=== PATIENT | male | born 1950 | race Caucasian/White ===

== ENCOUNTER 2018-11-21 08:46 | Day surgery (SDC) | payer OTHER, SELFPAY ==
[2018-11-21 09:21] VITALS: BP 139/82; PULSE 74; RESP 16; TEMP 36.3; O2SAT 100; BMI 25.8
[2018-11-21] MEDS: SODIUM CHLORIDE 0.9% 1,000 ML 200 ML IV (09:28)
--- NOTE | 2018-11-21 09:50 | PM.HP.1 ---
History of Present Illness Date Patient Seen: 11/21/18 Time Patient Seen: 09:51 Chief complaint: colonoscopy [id number] Narrative: 68-year-old male with extensive history of vasculopathy, aortic dissection, and aneurysms status post endovascular repairs who presents now for colorectal screening. His last examination was at least 10 years ago. He reports the study was normal at that time. However, his father was diagnosed with colon cancer at the age of 54 approximately. On further history today the patient denies any recent change in bowel habits. No nausea, vomiting, loss of appetite, unexplained weight loss, abdominal pain, change in bowel habits, diarrhea, constipation, melena, hematochezia, or bright red blood per rectum. Patient History Medical History Coronary artery disease (Acute) Family history of colon cancer in father (Acute) History of tobacco use (Acute) Hyperlipidemia (Acute) Hypertension (Acute) Surgical History History of colonoscopy (Acute) History of coronary artery stent placement (Acute) Anesthesia (Resolved) Dissection of aorta (Resolved ~2008) Popliteal aneurysm (Resolved ~2008) Popliteal aneurysm (Resolved ~2014) Surgical procedure planned (Resolved ~2012) Family History Father Heart disease Sister Dementia Social History household members: spouse Family & Social History Family History Father Heart disease Cancer Sister Dementia Social History: household members spouse Meds Home Medications Medication Instructions Recorded Confirmed Type atorvastatin 20 mg tablet 20 mg PO DAILY #90 tab 04/29/18 Rx losartan 50 mg tablet 50 mg PO DAILY #90 tab 04/29/18 Rx Allergies Allergy/AdvReac Type Severity Reaction Status Date / Time No Known Drug Allergies Allergy Unverified 04/29/18 10:34 Review of Systems Review of Systems All systems reviewed & are unremarkable except as noted in HPI and below Exam Vital Signs (past 8 hours): - 11/21/18 09:21 Temperature 97.3 F L Pulse Rate 74 Respiratory Rate 16 Blood Pressure 139/82 Pulse Oximetry 100 Oxygen Delivery Method Room Air Narrative Exam Narrative: Well-nourished well-developed male in no acute distress. Alert oriented x3. His is at the bedside for my entire visit. Sclera nonicteric Regular rate and rhythm No wheezes Extremities show no clubbing, cyanosis, or edema Abdomen soft, nondistended, nontender Objective Labs Labs: No recent laboratory or radiographic studies for review Assessment & Plan Assessment & Plan narrative: 68-year-old male with family history of colon cancer in his father and need for colorectal screening since it has been 10 years from his last examination. Colonoscopy is once again recommended. Technical details of the procedure were discussed. Risks, benefits, alternatives were explained. Risks including but not limited to sedation, aspiration, bleeding, pain, missed lesion, incomplete examination, need for further radiographic studies, colonic perforation, need for major abdominal surgery, and all attendant risks of major surgery were discussed at length. All questions were answered to his satisfaction, and he voiced understanding. Consent was placed on the chart. We will proceed as above.
--- NOTE | 2018-11-21 09:55 | PM.PREOP ---
Pre-operative Note Interval Note History & Physical reviewed/Exam performed by Physician: Yes Changes to H&P: No H&P completed within 30 days and has changed as indicated here:: Patient seen and examined in preoperative area. History and physical examination placed on the chart. Obviously, there have been no changes in the last 15 min. We will proceed with colonoscopy today as planned. ASA Class (for procedural sedation): II
--- NOTE | 2018-11-21 10:22 | PM.OP.ENDO ---
Operative Date/Time/Diagnoses Date of procedure: 11/21/18 Time of procedure: 10:22 Pre-op diagnosis: Colorectal screening and family history of colon cancer Post-op diagnosis: other (Colon polyps and diverticulosis) Procedure & Clinicians Study performed: 1. Sedation per surgeon 2. Colonoscopy with cold forceps polypectomy Same procedure as scheduled: Yes Indications: 68-year-old male with family history of colon cancer in his father who presents for colorectal screening. His last examination was 10 years ago as well. Colonoscopy is once again recommended. Surgeon: Dung Huffman Procedure Notes SCOAP/Timeout: Yes Procedure in detail: After obtaining informed consent, the patient was brought to the GI suite and placed in the left lateral decubitus position on the examination table. After placement of appropriate monitors, the patient was given incremental doses of Versed and Fentanyl until an appropriate level of sedation was achieved. A time out was held per SCOAP protocol. A digital rectal examination was performed and did not reveal any masses or obstructing lesions. The colonoscope was gently passed into the patient's anus and the entire colon navigated to the level of the cecum with minimal difficulty. Terminal ileum was intubated and noted to be normal. Once in the cecum, the scope was withdrawn being sure to go before and beyond all mucosal folds and prominences and get an excellent examination. The findings are noted above. At the level of the rectal vault, the scope was retroflexed and the internal anal canal was examined. The scope was straightened and air aspirated from the colon. The instrument was removed from the patient's body and the procedure was concluded. The patient was allowed to awaken from sedation without difficulty and taken to the post-anesthesia care unit in good condition. Scope withdrawal time: 12:48 min Sedation minutes: 21 Findings: diverticulosis, polyp and other findings (External hemorrhoids but not inflamed or thrombosed) Specimen(s): other (1. Hepatic flexure polyp at 70 cm 2. Left colon polyp at 40 cm) Complications: none Recommendations: Colonscopy in 5 years, High fiber diet and Will call with biopsy results Plan for aftercare: 1. Discharge home Follow up: as needed Disposition: PACU
[2018-11-21] MEDS: fentaNYL 250 MCG/5 ML INJ IV (10:23)
[2018-11-21 10:24] VITALS: BP 100/69; PULSE 64; RESP 9; TEMP 36.3; O2SAT 95
[2018-11-21] MEDS: MIDAZOLAM 5 MG/5 ML VIAL IV (10:24)
[2018-11-21 10:29] VITALS: BP 100/65; PULSE 67; RESP 9; O2SAT 93
[2018-11-21 10:35] VITALS: BP 101/70; PULSE 64; RESP 9; O2SAT 92
[2018-11-21 10:37] VITALS: O2SAT 100
[2018-11-21 11:00] VITALS: BP 124/76; PULSE 73; RESP 15; TEMP 36.8; O2SAT 96
--- NOTE | 2018-11-21 23:43 | PATH_ITS ---
[facility] [id number] [id number] Control ID: [id number] [facility] PATHOLOGY ONLY [address] [place] [id number] JAMES SPENCER [address] [place] [address] [id number] Patient Details : 1950 Age(y/m/d): Gender: M SSN: [id number] Specimen Details Date collected: 11/21/2018 2343 Local Date received: 11/21/2018 Date entered: 11/21/2018 Date reported: 11/25/2018 2006 ET Physician Details Ordering: Suni Clay Referring: ID: [email or web address] Additional Information: Clinical Info: [id number] Pathology Report Tests Ordered: Clinician Provided ICD Code(s) & Clinical History: Material Submitted: () PART A: HEPATIC FLEXURE POLYP AT 70CM PART B: LEFT COLON POLYP AT 40CM Diagnosis: (02) Polyp, Hepatic Flexure At 70 CM: Tubular adenoma. Left Colon Polyp At 40 CM: Tubular adenoma. BFI/11/24/2018 Pathologist Provided ICD Code(s): (02) D12.6 CPT Codes: (02) 456652, 336935 Gross Description: (01) Part A: HEPATIC FLEXURE POLYP AT 70CM: Received in formalin is 1 fragment(s) of mccabe, soft tissue measuring 0.4 x 0.4 x 0.3 cm submitted entirely in 1 cassette(s) Part B: LEFT COLON POLYP AT 40CM: Received in formalin are multiple fragment(s) of mccabe, soft tissue measuring 0.5 x 0.4 x 0.2 cm in aggregate submitted entirely in 1 cassette(s) /CKI Comments: (02) ADDENDUM: ADDENDUM REASON: This addendum is issued to confirm the diagnoses previously rendered by Dr. Daugherty, who is not credentialed at [facility]. The above diagnosis is unchanged. ADDENDUM COMMENT: I agree with Dr. Daugherty that both the hepatic flexure polyp at 70 cm and the left colon polyp at 40 cm are tubular adenomas. There is no evidence of high-grade dysplasia or malignancy. [facility]/11/25/2018 Addendum Electronically Signed by Storm Patiño MD, PhD, Pathologist ACC: [id number] PID: [id number] Electronically signed by (02) Mark Daugherty MD, Pathologist NPI- [id number]
== END 2018-11-21 11:20 | disposition home or self-care (01) ==
PROVIDERS: Surgery; PCP Family Medicine; Visit Provider Specialist
PROC: 0DJD8ZZ Inspection of Lower Intestinal Tract, Via Natural or Artificial Opening Endoscopic (ICD-10-PCS; CPT 45378; principal; 2018-11-21 10:45)
DX: Z12.11 Encounter for screening for malignant neoplasm of colon (principal); Z80.0 Family history of malignant neoplasm of digestive organs; K57.30 Diverticulosis of large intestine without perforation or abscess without bleeding; K64.4 Residual hemorrhoidal skin tags; I25.10 Atherosclerotic heart disease of native coronary artery without angina pectoris; Z87.891 Personal history of nicotine dependence; E78.5 Hyperlipidemia, unspecified; I10 Essential (primary) hypertension; D12.4 Benign neoplasm of descending colon
CPT/HCPCS: 45380; 99152; J2250; J3010

== ENCOUNTER 2019-10-07 18:30 | Emergency (ER) | payer OTHER, SELFPAY ==
[2019-10-07 18:40] VITALS: BP 160/98; PULSE 83; RESP 16; TEMP 36.6; O2SAT 97; BMI 25.8
--- NOTE | 2019-10-07 18:47 | ED_ITS ---
HPI - Chest Pain General Chief Complaint: Chest Pain Stated Complaint: left abdomen pain and chest pain Time Seen by Provider: 10/07/19 18:42 Source: patient Mode of arrival: Ambulatory Limitations: no limitations History of Present Illness HPI narrative: 69-year-old male here for evaluation of left upper abdomen ab dominal pain and also back pain. States that the symptoms have been going on for the past couple days but they have not been constant. Not worse with palpation. Has not had any diarrhea urinary symptoms. No blood in his urine. No blood in the stool. No prior abdominal surgeries. He does state that the symptoms do get a little bit worse with position and movement. No problems breathing. He does have a history of an abdominal aortic aneurysm/dissection and also a thoracic aortic pathology as well. Related Data Previous Rx's Medication Instructions Recorded atorvastatin 20 mg tablet See Rx Instructions .ROUTE 09/28/19 .COMPLEX #90 tablet losartan 50 mg tablet 50 mg PO DAILY #30 tab 10/05/19 Allergies Allergy/AdvReac Type Severity Reaction Status Date / Time No Known Drug Allergies Allergy Unverified 04/29/18 10:34 Review of Systems Constitutional Constitutional: Denies fever(s) and Denies headache(s) ENT Ears, Nose, Mouth, and Throat: Denies vertigo, Denies headache(s) and Denies disequilibrium Cardiovascular Cardiovascular: Denies chest pain, Denies diaphoresis, Denies palpitations and Denies dyspnea Respiratory Respiratory: Denies cough and Denies dyspnea Gastrointestinal Gastrointestinal: Reports abdominal pain, Denies melena, Denies hematochezia, Denies change in stool character, Denies constipation, Denies diarrhea, Denies nausea, Denies vomiting and Denies hematemesis Genitourinary Genitourinary: Denies hematuria, Denies genital lesions, Denies genital pain, Denies dysuria and Reports flank pain Musculoskeletal Musculoskeletal: Denies myalgias and Denies arthralgias Integumentary/Breasts Skin/Breast: Denies lesions and Denies rash Neurologic Neurologic: Denies behavioral changes, Denies vertigo, Denies headache(s) and Denies disequilibrium Psychiatric Psychiatric: Denies behavioral changes Endocrine Endocrine: Denies palpitations Hematologic/Lymphatic Hematologic/Lymphatic: Denies easy bleeding and Denies easy bruising Allergic/Immunologic Allergic/Immunologic: Denies urticaria Patient History Medical History Coronary artery disease (Acute) Family history of colon cancer in father (Acute) History of tobacco use (Acute) Hyperlipidemia (Acute) Hypertension (Acute) Social History household members: spouse Smoking Status: Never smoker Smoking Status: Never smoker alcohol intake frequency: 0-2 drinks per day Alcohol type: beer Substance Use Type: does not use Exam Initial Vital Signs Initial Vital Signs: Vital Signs Temperature 97.8 F 10/07/19 18:40 Pulse Rate 83 10/07/19 18:40 Respiratory Rate 16 10/07/19 18:40 Blood Pressure 160/98 H 10/07/19 18:40 Pulse Oximetry 97 10/07/19 18:40 Const General: cooperative, comfortable, well developed and well groomed Orientation: alert, awake and oriented x3 HENMT Head: normal to inspection and normocephalic Chest Chest: No crepitus and No tenderness Resp Effort & Inspection: normal respiratory effort Auscultation: clear to auscultation bilaterally Cardio Rate: regular rate Rhythm: regular rhythm Pulses: radial pulses present GI Inspection: non-distended Palpation: soft, No firm and No tender Back/Spine/Pelvis Back: No CVA tenderness Skin Lesions: no lesions Rashes: no rashes Neuro General: alert, awake and oriented x3 Cognition: normal cognition Speech: speech normal Motor: muscle tone normal throughout Sensory Exam: no sensory deficits noted Extrem General: normal to inspection and capillary refill normal Psych Appearance: grossly normal and well kempt Scores GCS [place] coma scale eye opening: Spontaneous Anne coma scale verbal response: Orientated Anne coma scale motor response: Obey commands [place] coma scale total score: 15 Course Orders Ordered: ED Orders 10/07/19 19:27 CT chest abd pel w con Stat 10/07/19 21:04 Troponin I Stat Discontinued Medications Sodium Chloride (Normal Saline 0.9%) 1,000 mls @ 1,000 mls/hr IV BOLUS ONE Stop: 10/07/19 20:20 Last Infusion: 10/07/19 22:43 Dose: 0 mls/hr Documented by: Admin: 10/07/19 21:34 Dose: 1,000 mls/hr Documented by: FRANKLIN Vital Signs Vital signs: Vital Signs - 8 hr 10/07/19 20:41 10/07/19 22:00 10/07/19 22:56 Pulse Rate 80 70 71 Respiratory Rate 19 15 16 Blood Pressure 148/91 H Blood Pressure [Left Arm] 146/92 H 148/85 H Pulse Oximetry 100 100 99 MDM - Chest Pain Medical Records Data Attestation: I reviewed the patient's medical records. Lab Data Attestation: I reviewed the patient's lab results. Result diagrams: 10/07/19 18:40 10/07/19 18:40 Labs: Lab Results 10/07/19 10/07/19 10/07/19 Range/Units 18:40 18:40 18:40 WBC 8.5 (4.5-11.0) X10^3/uL RBC 5.03 (4.5-5.9) X10^6/uL Hgb 15.9 (13.5-17.5) g/dL Hct 46.1 (41-53) % MCV 91.6 (80-100) fL MCH 31.6 (26-34) PG MCHC 34.4 (30-36) % RDW 13.4 (11.6-14.8) % Plt Count 159 (150-400) X10^3/uL Neut % (Auto) 75.5 H (50-75) % Lymph % (Auto) 12.0 L (25-40) % Sol[place] % (Auto) 9.1 (3-14) % Eos % (Auto) 2.8 (2-4) % Baso % (Auto) 0.6 (0-2) % Neut # (Auto) 6400 (1918-1513) /uL Lymph # (Auto) 1000 L (4526-8421) /uL Solano # (Auto) 800 (0-900) /uL Eos # (Auto) 200 (0-450) /uL Baso # (Auto) 0 (0-100) /uL PT 12.0 (10.1-12.7) SECONDS INR 1.0 (0.9-1.3) APTT 33 (26.4-36.2) SECONDS Sodium 141 (137-145) mmol/L Potassium 3.6 (3.4-5.1) mmol/L Chloride 102 (98-107) mmol/L Carbon Dioxide 29 (22-32) mmol/L BUN 22 H (9-20) mg/dL Creatinine 0.80 (0.66-1.25) mg/dL Estimated GFR > 60.0 (>60) mL/min BUN/Creatinine Ratio 27.5 H (6-22) Glucose 83 (80-110) mg/dL Calcium 9.3 (8.4-10.2) mg/dL Total Bilirubin 0.6 (0.2-1.3) mg/dL AST 31 (17-59) IU/L ALT 35 (<50) IU/L Alkaline Phosphatase 90 (38-126) U/L Troponin I < 0.012 (0.01-0.034) ng/mL B-Natriuretic Peptide < 100 (<100) Total Protein 7.5 (6.3-8.2) g/dL Albumin 4.4 (3.5-5.0) g/dL Globulin 3.1 (1.7-4.1) g/dL Albumin/Globulin Ratio 1.4 (1.0-2.8) Lipase 34 (23-300) U/L 10/07/19 Range/Units 21:04 WBC (4.5-11.0) X10^3/uL RBC (4.5-5.9) X10^6/uL Hgb (13.5-17.5) g/dL Hct (41-53) % MCV (80-100) fL MCH (26-34) PG MCHC (30-36) % RDW (11.6-14.8) % Plt Count (150-400) X10^3/uL Neut % (Auto) (50-75) % Lymph % (Auto) (25-40) % Sol[place] % (Auto) (3-14) % Eos % (Auto) (2-4) % Baso % (Auto) (0-2) % Neut # (Auto) (0426-5184) /uL Lymph # (Auto) (8348-7382) /uL Solano # (Auto) (0-900) /uL Eos # (Auto) (0-450) /uL Baso # (Auto) (0-100) /uL PT (10.1-12.7) SECONDS INR (0.9-1.3) APTT (26.4-36.2) SECONDS Sodium (137-145) mmol/L Potassium (3.4-5.1) mmol/L Chloride (98-107) mmol/L Carbon Dioxide (22-32) mmol/L BUN (9-20) mg/dL Creatinine (0.66-1.25) mg/dL Estimated GFR (>60) mL/min BUN/Creatinine Ratio (6-22) Glucose (80-110) mg/dL Calcium (8.4-10.2) mg/dL Total Bilirubin (0.2-1.3) mg/dL AST (17-59) IU/L ALT (<50) IU/L Alkaline Phosphatase (38-126) U/L Troponin I < 0.012 (0.01-0.034) ng/mL B-Natriuretic Peptide (<100) Total Protein (6.3-8.2) g/dL Albumin (3.5-5.0) g/dL Globulin (1.7-4.1) g/dL Albumin/Globulin Ratio (1.0-2.8) Lipase (23-300) U/L Imaging Data Chest x-ray: Radiologist's Impression: [address] [address] XRay Report Signed Patient: Guillermo GellerMR#: [id number] : 8Acct:[id number] Age/Sex: 69 / MDate of Service: 10/07/19 Loc: ED Accession Number: [id number] Procedure: XR chest 1V Ordering Provider: Hugo Case D.O. PROCEDURE: XR CHEST 1V INDICATIONS: Chest pain TECHNIQUE: One view of the chest was acquired. COMPARISON: None. FINDINGS: Surgical changes and devices: Descending thoracic aorta tandem stents. Lungs and pleura: Lungs are clear. No pleural effusions or pneumothorax. Mediastinum: Torturous descending thoracic aorta. Heart size is within normal limits. Bones and chest wall: No suspicious bony lesions. Prior right-sided rib fractures. Overlying soft tissues appear unremarkable. IMPRESSION: No acute cardiopulmonary abnormality. Descending thoracic aorta stent. Dictated by: Eusebio Paul M.D. on 10/07/2019 at 19:02 Approved by: Eusebio Paul M.D. on 10/07/2019 at 19:04 CT chest abdomen pelvis: Radiologist's Impression: [address] [address] [address] Scan Report Signed Patient: Guillermo GellerMR#: [id number] : 8Acct:[id number] Age/Sex: 69 / MDate of Service: 10/07/19 Loc: ED Accession Number: [id number] Procedure: CT chest abd pel w con Ordering Provider: Hugo Case D.O. 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 5 mm coronal and sagittal reformats were performed, with additional 7 mm MIP reformats through the lungs. For radiation dose reduction, the following was used: automated exposure control, adjustment of mA and/or kV according to patient size. COMPARISON: [facility], CR, XR CHEST 1V, 10/07/2019, 18:54. FINDINGS: Image quality: Excellent. CHEST: Lungs and pleura: Mild groundglass opacity in the right lung for example in the right lower lobe, (3/240). Left lower lobe pleural nodule measuring 6 mm, (5/23). No pleural effusions or pneumothorax. Central and peripheral airways appear patent and normal in caliber. Mediastinum: Heart size is normal. No pericardial effusion. No mediastinal or hilar adenopathy by size criteria. Descending thoracic aorta aneurysm measuring 5 cm j ust distal to the aortic isthmus, (4/41). There is a descending thoracic aorta stent which is patent. Esophagus is normal in caliber. No hiatal hernia. Chest wall: No axillary or supraclavicular adenopathy by size criteria. Thyroid gland is unremarkable. ABDOMEN: Solid organs: Liver is normal in size and enhancement. Small hypodense hepatic foci which have the appearance of benign cyst or hemangioma. Gallbladder demonstrates cholelithiasis. Biliary system is non dilated. Pancreas enhances normally. Spleen is normal in size and enhancement. No adrenal nodules. Kidneys demonstrate normal size and enhancement, without hydronephrosis. Simple inferior pole left renal cyst measur ing 5 cm. Peritoneum and bowel: Bowel loops demonstrate normal wall thickness and caliber. No free fluid or air. Increased stool in the colon. The appendix is not identified. Nodes and vessels: No retroperitoneal or mesenteric adenopathy by size criteria. Inferior to the thoracic aorta stent is a abdominal aortic dissection extending to the right common iliac artery. The upper abdominal aorta is aneurysmal measuring 4.6 cm, (2/72). There is calcification in at the dissection flap. Distal right common iliac artery aneurysm measuring approximately 3 cm, (2/106). The mesenteric arteries and renal arteries are patent. Miscellaneous: Tiny periumbilical fat-containing hernia. PELVIS: Genitourinary: Bladder wall thickness is normal. Prostatomegaly. Miscellaneous: Bilateral fat-containing inguinal hernias. No adenopathy. Bones: No suspicious bony lesions. No vertebral body compression fractures. IMPRESSION: 1. No acute inflammatory process is identified. 2. Increased stool in the colon. 3. Chronic abdominal aortic dissection. Kidneys enhance symmetrically. 4. Descending thoracic aorta aneurysm post stenting. 5. Subtle right lung groundglass opacity. This could be seen in low grade infectious/inflammatory etiology. 6. Left lower lobe pleural nodule measuring 6 mm. Comparison with prior CT would be helpful to confirm stability of the aorta and evaluation of the pulmonary nodule. If not available followup chest CT in 6 months is recommended. Comment: Aortic and gastrointestinal findings were discussed with Hugo Case at the time of dictation. Dictated by: Eusebio Paul M.D. on 10/07/2019 at 20:22 Approved by: Eusebio Paul M.D. on 10/07/2019 at 20:38 ECG Data Attestation: I personally reviewed and interpreted this ECG as follows: Prior ECG tracings: not available for review Interpretation: EKG upon arrival Sinus rhythm Ventricular rate 83 First degree AV block as needed oval 225 milliseconds Normal QRS Normal QTC [address]-elevation the 2 No reciprocal changes Repeat EKG Sinus rhythm Ventricular rate 81 First degree AV block as needed oval 229 milliseconds Normal QRS Normal QTC Nonspecific ST T wave changes MDM Narrative Medical decision making narrative: Patient did have left upper quadrant/left flank pain however on my exam he was not tender to palpation. Had a long discussion with the patient regarding his symptoms. His labs are not consistent with pancreatitis. LFTs are unremarkable. History of physical exam is not consistent with urinary tract infection. He has never had a kidney stone before there's no kidney stone on his CT scan. His initial EKG had ST elevations in 1 lead without any reciprocal changes. Repeat show that this was most likely a baseline variation. His troponins were negative x2. Does have a significant aortic/vascular history with prior surgeries. I discussed with his in their unsure if whether not his left or right renal arteries were involved in the dissection. They do say that the dissection went down to the iliac bifurcations. Secondary to this reason and his pain on the left side that is not explained by any other workup in the emergency department did feel that a CT scan was necessary to evaluate for this. It did show no new changes in his dissection. I discussed all this with the patient. We did discuss the lack of a definitive diagnosis. We did discuss the pulmonary nodule on his CT scan. I did inform him that he needed to follow-up with his primary doctor regarding this. His was at bedside for this discussion. They both expressed understanding of this nodule and the need for the follow-up. Will hold on further workup for now. Patient was given return precautions and follow-up instructions. He expressed understanding and agreement plan. Discharge Plan Departure Patient Disposition: Home Clinical Impression: Abdominal pain Qualifiers: Abdominal location: left upper quadrant Qualified Code(s): R10.12 - Left upper quadrant pain Discharge Date/Time: 10/07/19 22:57 Instructions: DI for Abdominal Pain-Adult Activity Restrictions/Additional Instructions: Continue all of your medications as directed. Contact your primary provider for a follow-up. Return to the emergency department for any new or worsening symptoms Prescriptions: No Action atorvastatin 20 mg tablet See Rx Instructions .ROUTE .COMPLEX Qty: 90 RF: 0 losartan 50 mg tablet 50 mg PO DAILY Qty: 30 RF: 0 Referrals: Abrahan Kaba MD [Primary Care Provider] -
[2019-10-07 18:57] LABS: Add Manual Diff / Slide Review NO; Basophils Absolute Auto 0 /uL (0-100); Basophils Percent Auto 0.6 % (0-2); Eosinophils Absolute Auto 200 /uL (0-450); Eosinophils Percent Auto 2.8 % (2-4); Hematocrit 46.1 % (41-53); Hemoglobin 15.9 g/dL (13.5-17.5); Lymphocytes Absolute Auto 1000 /uL (1100-4500); Mean Corpuscular HGB Conc 34.4 % (30-36); Mean Corpuscular Hemoglobin 31.6 PG (26-34); Mean Corpuscular Volume 91.6 fL (80-100); Monocytes Absolute Auto 800 /uL (0-900); Monocytes Percent Auto 9.1 % (3-14); Neutrophils Absolute Auto 6400 /uL (1500-7000); Neutrophils Percent Auto 75.5 % (50-75); Platelet Count 159 X10^3/uL (150-400); Red Blood Cell Count 5.03 X10^6/uL (4.5-5.9); Red Cell Distribution Width 13.4 % (11.6-14.8); White Blood Cell Count 8.5 X10^3/uL (4.5-11.0)
[2019-10-07 19:05] LABS: PTT Partial Thromboplastin Tim 33 SECONDS (26.4-36.2)
[2019-10-07 19:06] LABS: Alanine Aminotransferase 35 IU/L (<50); Albumin 4.4 g/dL (3.5-5.0); Albumin Globulin Ratio 1.4 (1.0-2.8); Alkaline Phosphatase 90 U/L (38-126); Aspartate Aminotransferase 31 IU/L (17-59); BUN Creatinine Ratio 27.5 (6-22); Bilirubin Total 0.6 mg/dL (0.2-1.3); Blood Urea Nitrogen 22 mg/dL (9-20); Calcium 9.3 mg/dL (8.4-10.2); Carbon Dioxide 29 mmol/L (22-32); Chloride 102 mmol/L (98-107); Estimated Glomerular Filt Rate > 60.0 mL/min (>60); Globulin 3.1 g/dL (1.7-4.1); Glucose 83 mg/dL (80-110); HEMOLYSIS < 15 (0-50); Lipase 34 U/L (23-300); Potassium 3.6 mmol/L (3.4-5.1); Sodium 141 mmol/L (137-145); Total Protein 7.5 g/dL (6.3-8.2)
[2019-10-07 19:18] LABS: B Type Natriuretic Peptide < 100 (<100); Troponin I < 0.012 ng/mL (0.01-0.034)
--- NOTE | 2019-10-07 19:27 | DI.CT.S_ITS ---
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 5 mm coronal and sagittal reformats were performed, with additional 7 mm MIP reformats through the lungs. For radiation dose reduction, the following was used: automated exposure control, adjustment of mA and/or kV according to patient size. COMPARISON: [facility], CR, XR CHEST 1V, 10/07/2019, 18:54. FINDINGS: Image quality: Excellent. CHEST: Lungs and pleura: Mild groundglass opacity in the right lung for example in the right lower lobe, (3/240). Left lower lobe pleural nodule measuring 6 mm, (5/23). No pleural effusions or pneumothorax. Central and peripheral airways appear patent and normal in caliber. Mediastinum: Heart size is normal. No pericardial effusion. No mediastinal or hilar adenopathy by size criteria. Descending thoracic aorta aneurysm measuring 5 cm just distal to the aortic isthmus, (4/41). There is a descending thoracic aorta stent which is patent. Esophagus is normal in caliber. No hiatal hernia. Chest wall: No axillary or supraclavicular adenopathy by size criteria. Thyroid gland is unremarkable. ABDOMEN: Solid organs: Liver is normal in size and enhancement. Small hypodense hepatic foci which have the appearance of benign cyst or hemangioma. Gallbladder demonstrates cholelithiasis. Biliary system is non dilated. Pancreas enhances normally. Spleen is normal in size and enhancement. No adrenal nodules. Kidneys demonstrate normal size and enhancement, without hydronephrosis. Simple inferior pole left renal cyst measuring 5 cm. Peritoneum and bowel: Bowel loops demonstrate normal wall thickness and caliber. No free fluid or air. Increased stool in the colon. The appendix is not identified. Nodes and vessels: No retroperitoneal or mesenteric adenopathy by size criteria. Inferior to the thoracic aorta stent is a abdominal aortic dissection extending to the right common iliac artery. The upper abdominal aorta is aneurysmal measuring 4.6 cm, (2/72). There is calcification in at the dissection flap. Distal right common iliac artery aneurysm measuring approximately 3 cm, (2/106). The mesenteric arteries and renal arteries are patent. Miscellaneous: Tiny periumbilical fat-containing hernia. PELVIS: Genitourinary: Bladder wall thickness is normal. Prostatomegaly. Miscellaneous: Bilateral fat-containing inguinal hernias. No adenopathy. Bones: No suspicious bony lesions. No vertebral body compression fractures. IMPRESSION: 1. No acute inflammatory process is identified. 2. Increased stool in the colon. 3. Chronic abdominal aortic dissection. Kidneys enhance symmetrically. 4. Descending thoracic aorta aneurysm post stenting. 5. Subtle right lung groundglass opacity. This could be seen in low grade infectious/inflammatory etiology. 6. Left lower lobe pleural nodule measuring 6 mm. Comparison with prior CT would be helpful to confirm stability of the aorta and evaluation of the pulmonary nodule. If not available followup chest CT in 6 months is recommended. Comment: Aortic and gastrointestinal findings were discussed with uHgo Case at the time of dictation. Dictated by: Eusebio Paul M.D. on 10/07/2019 at 20:22 Approved by: Eusebio Paul M.D. on 10/07/2019 at 20:38
[2019-10-07 20:41] VITALS: BP 146/92; PULSE 80; RESP 19; O2SAT 100
[2019-10-07] MEDS: SODIUM CHLORIDE 0.9% 1,000 ML 1000 ML IV (21:34)
[2019-10-07 22:00] VITALS: BP 148/85; PULSE 70; RESP 15; O2SAT 100
[2019-10-07 22:14] LABS: Troponin I < 0.012 ng/mL (0.01-0.034)
[2019-10-07 22:56] VITALS: BP 148/91; PULSE 71; RESP 16; O2SAT 99
== END 2019-10-07 22:57 | disposition home or self-care (01) ==
PROVIDERS: Emergency Provider Emergency Medicine; PCP Family Medicine
DX: R10.12 Left upper quadrant pain (principal); R07.9 Chest pain, unspecified
CPT/HCPCS: 36415; 71045; 71260; 74177; 80053; 83690; 83880; 84484; 85025; 85610; 85730; 93005; 96360; 99284; 99285; Q9967

== ENCOUNTER → 2020-10-11 07:15 | Outpatient (CLI) | payer OTHER, SELFPAY ==
[2020-10-11 09:00] LABS: Alanine Aminotransferase 25 IU/L (<50); Albumin 4.1 g/dL (3.5-5.0); Albumin Globulin Ratio 1.2 (1.0-2.8); Alkaline Phosphatase 80 U/L (38-126); Aspartate Aminotransferase 25 IU/L (17-59); Bilirubin Total 0.6 mg/dL (0.2-1.3); Blood Urea Nitrogen 22 mg/dL (9-20); Calcium 9.3 mg/dL (8.4-10.2); Carbon Dioxide 30 mmol/L (22-32); Chloride 104 mmol/L (98-107); Cholesterol 135 mg/dL (140-199); Estimated Glomerular Filt Rate 58.4 mL/min (>60); Globulin 3.3 g/dL (1.7-4.1); Glucose 94 mg/dL (80-110); HDL Cholesterol 30 mg/dL (40-60); HEMOLYSIS < 15 (0-50); LDL Cholesterol Calculated 83 mg/dL (<100); Potassium 4.3 mmol/L (3.4-5.1); Sodium 139 mmol/L (137-145); Total Protein 7.4 g/dL (6.3-8.2); Triglycerides 108 mg/dL (35-150)
[2020-10-11 09:32] LABS: Creatinine Urine Random 90.7 mg/dL
[2020-10-11 09:36] LABS: Microalbumi Creatinin Ratio Ur 14.3 ug/mg CR (<30); Microalbumin Urine Random 1.3 mg/dL (0-1.6)
== END ==
PROVIDERS: PCP Family Medicine; Referring Provider Family Medicine; Visit Provider Family Medicine
DX: E78.2 Mixed hyperlipidemia (principal); I10 Essential (primary) hypertension
CPT/HCPCS: 36415; 80053; 80061; 82043; 82570

== ENCOUNTER 2021-10-29 09:01 | Emergency (ER) | payer OTHER, SELFPAY ==
[2021-10-29 09:32] VITALS: BP 172/91; PULSE 62; RESP 18; TEMP 36.6; O2SAT 99; BMI 25.8
--- NOTE | 2021-10-29 09:34 | DI.US.S_ITS ---
PROCEDURE: US PERIPH VENOUS UP EXTREM LT INDICATIONS: PAIN HX DVT TECHNIQUE: Real-time imaging, as well as color and pulse Doppler interrogation, was performed of the left upper extremity deep veins from the inferior neck to the antecubital fossa. COMPARISON: None. FINDINGS: The internal jugular vein, visualized portions of the subclavian vein, axillary, and brachial veins are free of intraluminal thrombus. Where physically possible, the veins are normally compressible. Color and pulse Doppler demonstrate normal intraluminal flow, with expected phasicity and pulsatility. Additional scanning of the cephalic and basilic veins of the superficial system demonstrate normal compressibility, without thrombus. IMPRESSION: Negative for deep venous thrombosis. Dictated by: David Rush M.D. on 10/29/2021 at 10:10 Approved by: David Rush M.D. on 10/29/2021 at 10:10
--- NOTE | 2021-10-29 11:24 | ED_ITS ---
HPI - Extremity Problem General Chief complaint: Extremity Problem,Nontraumatic Stated complaint: Pain in left arm, poss blood clot Time Seen by Provider: 10/29/21 09:16 Source: patient Mode of arrival: Ambulatory History of Present Illness HPI Narrative: 71-year-old gentleman with a history of hypertension, brain aneurysm with stents, prior DVT the last 48 hours has been having intermittent upper left arm pain and comes in this morning with concerns that he may have an upper extremity DVT. His right lower leg DVT was unprovoked. He has not had any trauma to the left arm, no new workouts and has not had any IVs placed recently. He describes no fevers, cough, chills, chest pain, palpitations. There is no skin changes to the arm he has not noticed any joint swelling either the elbow or the shoulder. He describes the pain as including the left upper arm from the shoulder to just distal to the elbow. Related Data Home Medications Medication Instructions Recorded Confirmed aspirin 81 mg tablet,delayed 81 mg PO DAILY 11/30/19 08/30/20 release (Adult Aspirin Regimen) Previous Rx's Medication Instructions Recorded amlodipine 10 mg tablet 10 mg PO DAILY #90 tab 12/07/20 atorvastatin 20 mg tablet 20 mg PO DAILY #90 tab 12/07/20 carvedilol 25 mg tablet 25 mg PO BID #180 tab 12/07/20 losartan 100 mg tablet See Rx Instructions .ROUTE 10/17/21 .COMPLEX #90 tab Allergies Allergy/AdvReac Type Severity Reaction Status Date / Time No Known Drug Allergies Allergy Verified 10/19/20 13:05 Review of Systems Review of Systems Narrative: Remainder of complete review of systems is otherwise unremarkable except for that included in the HPI. Patient History Medical History Atypical chest pain Coronary artery disease Family history of colon cancer in father History of tobacco use Hyperlipidemia Hypertension Surgical History Anesthesia Dissection of aorta (~2008) History of colonoscopy History of coronary artery stent placement History of thoracic aortic aneurysm repair Popliteal aneurysm (~2008) Popliteal aneurysm (~2014) Surgical procedure planned (~2012) Family History Father Heart disease Cancer Sister Dementia Social History household members: spouse Smoking Status: Never smoker Smoking Status: Never smoker alcohol intake frequency: 0-2 drinks per day Alcohol type: beer Substance Use Type: does not use Exam Narrative Exam Narrative: General: Alert appropriate in no acute distress Respiratory: Able to speak in full sentences, no obvious respiratory distress Skin: No obvious rashes, warm and dry Neurologic: Grossly intact no obvious asymmetries or abnormalities Psych: appropriate insight and affect, cooperative Extremity: Left upper extremities examine. Shoulder is unremarkable with no effusion, warmth or redness. He has full nontender range of motion at the shoulder in all planes and the elbow. No pain or tenderness in the biceps for bicipital insertion. No tricep tenderness. Ultrasound of the upper extremity shows no DVT Initial Vital Signs Initial Vital Signs: Vital Signs Temperature 97.8 F 10/29/21 09:32 Pulse Rate 62 10/29/21 09:32 Respiratory Rate 18 10/29/21 09:32 Blood Pressure 172/91 H 10/29/21 09:32 Pulse Oximetry 99 10/29/21 09:32 Course Orders Ordered: ED Orders 10/29/21 09:34 US periph venous up extrem lt Stat Vital Signs Vital signs: Vital Signs - 8 hr 10/29/21 09:32 Temperature 97.8 F Pulse Rate 62 Respiratory Rate 18 Blood Pressure 172/91 H Pulse Oximetry 99 [facility] - Extremity (Nontraumatic) Imaging Data Upper extremity DVT: Radiologist's Impression: TECHNIQUE:? Real-time imaging, as well as color and pulse Doppler interrogation, was performed of the left upper extremity deep veins from the inferior neck to the antecubital fossa.? ? COMPARISON:? None. ? FINDINGS:? The internal jugular vein, visualized portions of the subclavian ve in, axillary, and brachial veins are free of intraluminal thrombus.? Where physically possible, the veins are normally compressible.? Color and pulse Doppler demonstrate normal intraluminal flow, with expected phasicity and pulsatility.? Additional scanning of the cephalic and basilic veins of the superficial system demonstrate normal compressibility, without thrombus.? ? IMPRESSION:? ? Negative for deep venous thrombosis. ? ? Dictated by: David Rush M.D. on 10/29/2021 at 10:10 ? ? MDM Narrative Medical decision making narrative: 71-year-old gentleman presents with left upper extremity pain intermittent for the last 48 hours. No obvious trauma. There is no evidence of effusion at either the shoulder or the elbow. The limb is neurovascularly intact. He has full range of motion at the elbow without warmth or redness. No evidence of obvious trauma, bursitis, no skin changes to suggest zoster developing, and ultrasound shows no evidence of DVT. Findings reviewed at time of discharge he is completely pain-free and safe to go home. Discharge Plan Departure Patient Disposition: Home Clinical Impression: Upper arm pain Instructions: DI for Arm Pain Activity Restrictions/Additional Instructions: Thank you for coming in today There does not appear to be any musculoskeletal issues with your left arm in you do not have a blood clot. Now that the pain has resolved I suspect that things will continue to improve If have this pain again please check your blood pressure. You had not taking in your morning blood pressure medications in the emergency department on arrival and were given all of them. The pain in your arm resolved. It does not necessarily seem to be related to the blood pressure however, if you have the pain developed again please do check your blood pressure. If you are noticing persistent left arm pain any time your blood pressure is elevated he need to come back to the emergency department and we need to focus on your heart a bit more. I wish you the best Prescriptions: No Action amlodipine 10 mg tablet 10 mg PO DAILY Qty: 90 3RF atorvastatin 20 mg tablet 20 mg PO DAILY Qty: 90 3RF carvedilol 25 mg tablet 25 mg PO BID Qty: 180 3RF Rx Instructions: Take one tablet by mouth twice a day. losartan 100 mg tablet See Rx Instructions .ROUTE .COMPLEX Qty: 90 3RF Dose Instruction: TAKE 1 TABLET BY MOUTH DAILY Rx Instructions: TAKE 1 TABLET BY MOUTH DAILY aspirin [Adult Aspirin Regimen] 81 mg tablet,delayed release (DR/EC) 81 mg PO DAILY 0RF Referrals: Ezekiel Rogers MD [Primary Care Provider] -
[2021-10-29 11:34] VITALS: PULSE 57; O2SAT 96
[2021-10-29 11:35] VITALS: BP 132/78; PULSE 57; O2SAT 96
--- NOTE | 2021-10-29 11:39 | PC.NURSE ---
Patient complains of left arm pain, radiating towards his shoulder for 2-3 days. Denies having N/V/D. Denies C/P, AOx4/4. Skin is warm pink and dry.
--- NOTE | 2021-10-29 11:40 | PC.NURSE ---
Patient reports history of 2 Descending Aortic Aneurysms.
== END 2021-10-29 11:51 | disposition home or self-care (01) ==
PROVIDERS: Emergency Provider Emergency Medicine; PCP Family Medicine
DX: M79.622 Pain in left upper arm (principal); I10 Essential (primary) hypertension
CPT/HCPCS: 93005; 93971; 99283

== ENCOUNTER → 2021-11-09 09:14 | Outpatient (CLI) | payer OTHER, SELFPAY ==
[2021-11-09 10:27] LABS: Add Manual Diff / Slide Review NO; Basophils Absolute Auto 0 /uL (0-100); Basophils Percent Auto 0.7 % (0-2); Eosinophils Absolute Auto 200 /uL (0-450); Eosinophils Percent Auto 3.6 % (2-4); Hematocrit 43.5 % (41-53); Lymphocytes Absolute Auto 1400 /uL (1100-4500); Lymphocytes Percent Auto 21.6 % (25-40); Mean Corpuscular HGB Conc 34.3 % (30-36); Mean Corpuscular Hemoglobin 31.1 PG (26-34); Mean Corpuscular Volume 90.7 fL (80-100); Monocytes Absolute Auto 700 /uL (0-900); Monocytes Percent Auto 11.4 % (3-14); Neutrophils Absolute Auto 4000 /uL (1500-7000); Neutrophils Percent Auto 62.7 % (50-75); Platelet Count 127 X10^3/uL (150-400); Red Cell Distribution Width 13.2 % (11.6-14.8); White Blood Cell Count 6.3 X10^3/uL (4.5-11.0)
[2021-11-09 10:50] LABS: Creatinine Urine Random 108.6 mg/dL
[2021-11-09 10:52] LABS: Alanine Aminotransferase 26 IU/L (<50); Albumin 4.1 g/dL (3.5-5.0); Albumin Globulin Ratio 1.3 (1.0-2.8); Alkaline Phosphatase 74 U/L (38-126); Aspartate Aminotransferase 23 IU/L (17-59); BUN Creatinine Ratio 20.8 (6-22); Bilirubin Total 0.6 mg/dL (0.2-1.3); Blood Urea Nitrogen 22 mg/dL (9-20); Calcium 9.1 mg/dL (8.4-10.2); Carbon Dioxide 28 mmol/L (22-32); Chloride 105 mmol/L (98-107); Cholesterol 132 mg/dL (140-199); Estimated Glomerular Filt Rate > 60.0 mL/min (>60); Globulin 3.1 g/dL (1.7-4.1); Glucose 96 mg/dL (80-110); HDL Cholesterol 33 mg/dL (40-60); HEMOLYSIS < 15 (0-50); LDL Cholesterol Calculated 80 mg/dL (<100); Potassium 4.3 mmol/L (3.4-5.1); Sodium 139 mmol/L (137-145); Total Protein 7.2 g/dL (6.3-8.2); Triglycerides 97 mg/dL (35-150)
[2021-11-09 10:54] LABS: Microalbumi Creatinin Ratio Ur 11.9 ug/mg CR (<30); Microalbumin Urine Random 1.3 mg/dL (0-1.6)
== END ==
PROVIDERS: PCP Family Medicine; Referring Provider Family Medicine; Visit Provider Family Medicine
DX: I10 Essential (primary) hypertension (principal); E78.2 Mixed hyperlipidemia; Z86.79 Personal history of other diseases of the circulatory system; Z98.890 Other specified postprocedural states
CPT/HCPCS: 36415; 80053; 80061; 82043; 82570; 85025

== ENCOUNTER → 2022-04-04 13:35 | Outpatient (CLI) | payer OTHER, SELFPAY | PROVIDERS: PCP Family Medicine; Referring Provider Family Medicine; Visit Provider Family Medicine | DX: T81.89XA Other complications of procedures, not elsewhere classified, initial encounter (principal); S81.802A Unspecified open wound, left lower leg, initial encounter; S31.104A Unspecified open wound of abdominal wall, left lower quadrant without penetration into peritoneal cavity, initial encounter; I73.9 Peripheral vascular disease, unspecified; Z86.79 Personal history of other diseases of the circulatory system; Z95.818 Presence of other cardiac implants and grafts | CPT/HCPCS: 11042; 11043; 11045; 11046; 97597; 97606; 99204; 99213 ==

== ENCOUNTER → 2022-04-11 08:49 | Outpatient (CLI) | payer OTHER, SELFPAY | PROVIDERS: PCP Family Medicine; Referring Provider Family Medicine; Visit Provider Family Medicine | DX: T81.89XA Other complications of procedures, not elsewhere classified, initial encounter (principal); S81.802A Unspecified open wound, left lower leg, initial encounter; S31.104A Unspecified open wound of abdominal wall, left lower quadrant without penetration into peritoneal cavity, initial encounter; Z86.79 Personal history of other diseases of the circulatory system | CPT/HCPCS: 11042; 11045; 97606 ==

== ENCOUNTER → 2022-05-03 11:35 | Outpatient (CLI) | payer OTHER, SELFPAY | PROVIDERS: PCP Family Medicine; Referring Provider Family Medicine; Visit Provider Family Medicine | DX: T81.89XA Other complications of procedures, not elsewhere classified, initial encounter (principal); S81.802A Unspecified open wound, left lower leg, initial encounter; S31.104A Unspecified open wound of abdominal wall, left lower quadrant without penetration into peritoneal cavity, initial encounter; R60.0 Localized edema | CPT/HCPCS: 97605 ==

== ENCOUNTER → 2022-05-14 10:13 | Outpatient (CLI) | payer OTHER, SELFPAY | PROVIDERS: PCP Family Medicine; Referring Provider Family Medicine; Visit Provider Family Medicine | DX: S81.802A Unspecified open wound, left lower leg, initial encounter (principal); R60.0 Localized edema; L53.9 Erythematous condition, unspecified; E46 Unspecified protein-calorie malnutrition; R21 Rash and other nonspecific skin eruption; Z87.891 Personal history of nicotine dependence | CPT/HCPCS: 11042; 11045; 97605; 99212 ==

== ENCOUNTER → 2022-05-21 13:15 | Outpatient (CLI) | payer OTHER, SELFPAY | PROVIDERS: PCP Family Medicine; Referring Provider Family Medicine; Visit Provider Family Medicine | DX: S81.802A Unspecified open wound, left lower leg, initial encounter (principal); S71.102A Unspecified open wound, left thigh, initial encounter; L08.89 Other specified local infections of the skin and subcutaneous tissue | CPT/HCPCS: 11042; 11045; 87070; 87075; 87077; 87147; 87186; 87205; 99214 ==